=== PATIENT | female | born 1945 ===

== ENCOUNTER 2017-06-27 07:42 | Day surgery (SDC) | payer MEDICARE, OTHER ==
[2017-06-27] MEDS ORDERED: Lactated Ringer's 1,000 ML IV ONE (08:07)
[2017-06-27] MEDS ORDERED: Propofol 10 mg/ml Inj (20 ML) ONE (09:34)
[2017-06-27] MEDS ORDERED: Midazolam 2 MG/2 ML VIAL ONE (09:34)
[2017-06-27 11:01] VITALS: O2SAT 100
[2017-06-27 11:23] VITALS: BP 129/54; PULSE 57; RESP 16; TEMP 97.2
== END 2017-06-27 16:00 | disposition home or self-care (01) ==
LOC: H.ENDO 07:42
PROVIDERS: ATTEND Internal Medicine Gastroenterology
DX: Z12.11 Encounter for screening for malignant neoplasm of colon (principal); K76.89 Other specified diseases of liver; I10 Essential (primary) hypertension; M81.0 Age-related osteoporosis without current pathological fracture; E03.9 Hypothyroidism, unspecified; K91.71 Accidental puncture and laceration of a digestive system organ or structure during a digestive system procedure; K63.1 Perforation of intestine (nontraumatic); K57.30 Diverticulosis of large intestine without perforation or abscess without bleeding; Q43.8 Other specified congenital malformations of intestine
CPT/HCPCS: 45378; J2250; J2704; J7120

== ENCOUNTER 2017-06-27 12:22 | Emergency (ER) | payer MEDICARE, OTHER ==
[2017-06-27] MEDS ORDERED: Iohexol 240 (50 ml) PO ONE (12:39)
[2017-06-27] MEDS ORDERED: Iohexol 240 (50 ml) ONE (12:56)
--- NOTE | 2017-06-27 13:10 | ED PDOC ---
HPI: Abdomen Time Seen by Provider: 06/27/17 12:29 Chief Complaint (Nursing): Abdominal Pain Chief Complaint (Provider): Abdominal Pain History Per: Patient History/Exam Limitations: no limitations Onset/Duration Of Symptoms: Hrs Current Symptoms Are (Timing): Still Present Location Of Pain/Discomfort: LLQ Associated Symptoms: denies: Nausea, Vomiting, Diarrhea Additional Complaint(s): 72 year old female sent to the ED from Dr. Chicas office, for complaint of abdominal pain. Patient had a routine colonoscopy this morning with noted perforation in the sigmoid colon. Two clips were placed and patient was started on PO Cipro and Flagyl with the expectation that this would cover possible infection. Patient has developed increasing pain and was sent here for CT to make sure there is no large amount of leakage into the peritoneal space. Pain is localized to the left lower abdomen. No fever, chills, shortness of breath, chest pain, nausea, or vomiting. PMD: Dr. Roxann Bell GI: Dr. Segura Past Medical History Reviewed: Historical Data, Nursing Documentation, Vital Signs Vital Signs: Last Vital Signs Temp 97.9 F 06/27/17 12:34 Pulse 68 06/27/17 14:08 Resp 18 06/27/17 14:08 BP 130/56 L 06/27/17 14:08 Pulse Ox 98 06/27/17 14:08 - Medical History PMH: HTN, Hypercholesterolemia, Hypothyroidism, Osteoporosis Denies: Chronic Kidney Disease - Surgical History Surgical History: Tonsillectomy - Family History Family History: States: No Known Family Hx - Home Medications Home Medications: Ambulatory Orders Medication Instructions Recorded Levothyroxine 100 mg PO DAILY 02/17/14 Losartan Potassium 50 mcg PO DAILY 02/17/14 Simvastatin 10 mg PO DAILY 02/17/14 Folic Acid [FA-8] 800 mcg PO DAILY 06/27/17 Hydrochlorothiazide [Microzide] 25 mg PO DAILY 06/27/17 - Allergies Allergies/Adverse Reactions: Allergies Allergy/AdvReac Type Severity Reaction Status Date / Time aspirin [From Fiorinal] Allergy RASH Verified 06/27/17 12:26 butalbital [From Fiorinal] Allergy RASH Verified 06/27/17 12:26 caffeine [From Fiorinal] Allergy RASH Verified 06/27/17 12:26 Review of Systems ROS Statement: Except As Marked, All Systems Reviewed And Found Negative Constitutional: Negative for: Fever, Chills Cardiovascular: Negative for: Chest Pain Respiratory: Negative for: Shortness of Breath Gastrointestinal: Positive for: Abdominal Pain (lower left). Negative for: Nausea, Vomiting Physical Exam - Reviewed Nursing Documentation Reviewed: Yes Vital Signs Reviewed: Yes - Physical Exam Appears: Positive for: Non-toxic, No Acute Distress Head Exam: Positive for: ATRAUMATIC, NORMAL INSPECTION, NORMOCEPHALIC Skin: Positive for: Normal Color, Warm. Negative for: Rash Eye Exam: Positive for: EOMI, Normal appearance, PERRL Neck: Positive for: Normal, Painless ROM Cardiovascular/Chest: Positive for: Regular Rate, Rhythm. Negative for: Murmur Respiratory: Positive for: Normal Breath Sounds, Other (Lungs clear to auscultation). Negative for: Accessory Muscle Use, Respiratory Distress Gastrointestinal/Abdominal: Positive for: Bowel Sounds (in all 4 quadrants), Soft, Tenderness (mild tenderness to RLQ, no tenderness to LLQ). Negative for: Distended Back: Positive for: Normal Inspection. Negative for: Vertebral Tenderness Extremity: Positive for: Normal ROM. Negative for: Pedal Edema, Deformity Neurologic/Psych: Positive for: Alert, Oriented - Laboratory Results Result Diagrams: 06/27/17 12:49 06/27/17 12:49 - ECG O2 Sat by Pulse Oximetry: 100 (RA) Pulse Ox Interpretation: Normal Medical Decision Making Medical Decision Making: Initial Impression: Possible intestinal perforation Spoke to Dr. Chicas fellow after evaluating patient, they are requesting blood work. Will give IV antibiotics and order CT with oral and IV contrast. Time: 12:38 Initial Plan: * BMP * CBC * CT Abd/Pelvis Scribe Attestation: Documented by Kaley Eckert, acting as a scribe for Katlin Cool MD Provider Scribe Attestation: All medical record entries made by the Scribe were at my direction and personally dictated by me. I have reviewed the chart and agree that the record accurately reflects my personal performance of the history, physical exam, medical decision making, and the department course for this patient. I have also personally directed, reviewed, and agree with the discharge instructions and disposition. 3.30p - case d/w Dr. Segura's GI fellow. CT findings reviewed. As per discussion with Dr. Segura, the fellow advised discharge with followup. Patient instructed to take antibiotics prescribed by Dr. Segura after the endoscopy. Disposition - Clinical Impression Clinical Impression: Abdominal discomfort - Patient ED Disposition Is Patient to be Admitted: No Doctor Will See Patient In The: Office Counseled Patient/Family Regarding: Diagnosis, Need For Followup - Disposition Referrals: Chad Segura MD [Medical Doctor] - Rashawn Carpio [Outside] Disposition: Routine/Home Disposition Time: 15:30 Condition: STABLE Instructions: Colonoscopy Forms: [employer] (Arabic) - POA Present On Arrival: None
[2017-06-27 13:12] LABS: BASO # 0.1 K/uL (0.0-0.2); BASO % 0.7 % (0.0-2.0); EOS # 0.6 K/uL (0.0-0.7); LYMPH # 0.9 K/uL (1.0-4.3); LYMPH % 12.6 % (20.0-40.0); MEAN CELL VOLUME 91.1 fl (81.0-99.0); MEAN CORPUSCULAR HEMOGLOBIN 31.2 pg (27.0-31.0); MEAN CORPUSCULAR HGB CONC 34.3 g/dL (33.0-37.0); MEAN PLATELET VOLUME 7.2 fl (7.2-11.7); MONO # 0.3 K/uL (0.0-0.8); MONO % 4.2 % (0.0-10.0); NEUT # 5.2 K/uL (1.8-7.0); NEUT % 73.5 % (50.0-75.0); NRBC % 0.1 % (0.0-0.0); RBC 3.84 Mil/uL (3.80-5.20); RED CELL DISTRIBUTION WIDTH 13.1 % (11.5-14.5); WHITE BLOOD COUNT 7.1 K/uL (4.8-10.8)
[2017-06-27 13:15] LABS: BLOOD UREA NITROGEN 17 mg/dl (7-17); CALCIUM 8.8 mg/dL (8.4-10.2); GFR AFRICAN-AMERICAN > 60; GFR NON-AFRICAN AMERICAN > 60
[2017-06-27] MEDS ORDERED: Ciprofloxacin 400mg/200ml D5W 400 MG/200 ML BAG IVPB SCH (13:20)
[2017-06-27] MEDS ORDERED: metroNIDAZOLE 500mg/100ml NS 100 ML IVPB SCH (13:20)
[2017-06-27] MEDS ORDERED: Ciprofloxacin 400mg/200ml D5W 400 MG/200 ML BAG IVPB STA (13:22)
[2017-06-27] MEDS ORDERED: metroNIDAZOLE 500mg/100ml NS 100 ML IVPB ONE ×2 (13:24→14:19)
[2017-06-27] MEDS ORDERED: Sodium Chloride 0.9% 100 ML ONE (14:19)
[2017-06-27] MEDS ORDERED: Ciprofloxacin 400mg/200ml D5W 400 MG/200 ML BAG IVPB ONE (14:19)
[2017-06-27] MEDS ORDERED: Iohexol 300 100 ML IJ ONE (14:19)
--- NOTE | 2017-06-27 15:43 | CT ---
PROCEDURE: CT Abdomen and Pelvis with contrast HISTORY: s/p routine colonoscopy w/ sigmoid perf; clipped COMPARISON: None. TECHNIQUE: CT scan of the abdomen and pelvis was performed after intravenous administration of contrast. Oral contrast was administered. Coronal and sagittal reformatted images were obtained. Contrast dose: 95 mL Omnipaque 300 Radiation dose: Total exam DLP = 533.48 mGy-cm. This CT exam was performed using one or more of the following dose reduction techniques: Automated exposure control, adjustment of the mA and/or kV according to patient size, and/or use of iterative reconstruction technique. FINDINGS: LOWER THORAX: There is subsegmental atelectasis in the lower lobes. LIVER: The liver is normal in size and there is homogeneous enhancement. There a few simple cyst in the right hepatic lobe, the largest measures 2.9 cm. No intrahepatic biliary ductal dilatation. GALLBLADDER AND BILE DUCTS: There are no calcified gallstones. PANCREAS: The pancreas is normal in size and there is homogeneous enhancement without ductal dilatation or calcifications. SPLEEN: Normal in size and appearance. ADRENALS: No discrete nodule. KIDNEYS AND URETERS: Both kidneys are normal in size and there is homogeneous enhancement without hydronephrosis or focal mass. VASCULATURE: No aortic aneurysm. BOWEL: The small bowel loops are normal in caliber. There is extensive colonic diverticulosis worse in the left descending and sigmoid colon. There segmental mural thickening in the sigmoid colon with apparent perforation in the proximal sigmoid colon where 2 clips are identified. APPENDIX: Normal appendix. PERITONEUM: Moderate amount of retroperitoneal and intraperitoneal air, worse in the right abdomen and hemipelvis. No free intraperitoneal fluid. LYMPH NODES: No enlarged lymph nodes. BLADDER: Well distended and grossly normal in appearance. REPRODUCTIVE: The uterus is normal in size. A pessary is identified. BONES: No acute fracture. There is diffuse bone demineralization and multilevel degenerative changes in the spine. OTHER FINDINGS: There is a small sliding hiatal hernia and gastroesophageal reflux. IMPRESSION: 1. Status post colonoscopy, apparent perforation in the proximal sigmoid colon with moderate amount of intraperitoneal and retroperitoneal air, worse on the right. 2. Extensive colonic diverticulosis, worse in the left hemicolon. Apparent segmental mural thickening in the proximal sigmoid colon could be related to post procedural changes versus early acute sigmoid diverticulitis. No evidence of abscess. 3. Hepatic cysts. Important findings were discussed with Dr. Cool in the ER on 06/27/2017 at 3:15 p.m.
[2017-06-27 15:51] VITALS: O2SAT 100
[2017-06-27 18:17] VITALS: BP 129/61; PULSE 70; RESP 17; TEMP 98
--- NOTE | 2017-06-28 11:57 | CP.PCM.PN ---
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 The patient states that she is feeling well and has virtually no discomfort today. She purchased Cipro/Flagyl as directed and understands that she will continue these medications for 10 days. The patient was instructed to eat a liquid diet today and tomorrow (water, juice, soup broth, jello) and if asymptomatic could resume a more solid diet on Friday. She was given strict instructions to return to the ED if she should become ill with fever/chills/abdominal pain/abnormal bowel movements. She was instructed to follow up with Dr Segura in her office this (07/03/17) at 3PM. Patient verbalized understanding of all. Case discussed with Dr Segura. Objective - Vital Signs/Intake and Output Vital Signs (last 24 hours): Temp Pulse Resp BP Pulse Ox 98 F 70 17 129/61 100 06/27/17 18:16 06/27/17 18:16 06/27/17 18:16 06/27/17 18:16 06/27/17 18:16 - Labs Labs: 06/27/17 12:49 06/27/17 12:49
== END 2017-06-27 17:46 | disposition home or self-care (01) ==
LOC: H.ER 12:22
DX: K57.30 Diverticulosis of large intestine without perforation or abscess without bleeding (principal)
CPT/HCPCS: 74177; 80048; 85025; 96374; 96375; 99284; J0744; Q9966; Q9967